=== PATIENT | male | born 1995 | race Caucasian/White ===

== ENCOUNTER 2024-08-09 21:58 | Emergency (ER) | payer SELFPAY ==
[~2024-08-09] VITALS: Ht 170.2 cm; Wt 81.0 kg
[2024-08-09] MEDS: ACETAMINOPHEN 500MG TABLET PO ONE (00:30)
[2024-08-09 22:06] VITALS: O2SAT 95
[2024-08-10] MEDS ORDERED: IBUP-2029 MT (00:29)
[2024-08-10 00:45] VITALS: BP 122/75; PULSE 68; RESP 17; TEMP 36.72516; O2SAT 100
== END 2024-08-10 03:31 | disposition home or self-care (01) ==
LOC: ER 21:58
DX: S02.2XXA Fracture of nasal bones, initial encounter for closed fracture (principal); X58.XXXA Exposure to other specified factors, initial encounter; Y04.0XXA Assault by unarmed brawl or fight, initial encounter; Y92.89 Other specified places as the place of occurrence of the external cause; Y99.8 Other external cause status
CPT/HCPCS: 70450; 70486; 99284; Z7610